=== PATIENT | male | born 1990 | race Hispanic/Latino ===

== ENCOUNTER 2016-12-14 00:18 | Emergency (ER) | payer SELFPAY ==
[~2016-12-14] VITALS: Ht 167.6 cm; Wt 110.0 kg
[~2016-12-14 00:18] MED LIST: AMOXICILLIN500 MG PO
[2016-12-14 01:43] LABS: HEMATOCRIT 44.6 % (39.0-50.0); IMMATURE GRANULOCYTES 0.3 % (0.0-1.0); MEAN CELL VOLUME 91.2 fL CALC (80.0-100.0); MEAN CORPUSCULAR HGB 30.7 pG CALC (26.0-32.0); MEAN CORPUSCULAR HGB CONC 33.6 g/L CALC (32.0-36.0); NEUT# 8.04 thou/uL (1.82-7.42); RED BLOOD COUNT 4.89 mill/uL (4.70-6.10); RED CELL DISTRI WIDTH 12.7 % (11.5-15.5)
[2016-12-14 01:44] LABS: URINE BILIRUBIN - DIPSTICK NEGATIVE (NEGATIVE); URINE BLOOD DIPSTICK NEGATIVE (NEGATIVE); URINE CLARITY CLEAR; URINE COLOR YELLOW; URINE GLUCOSE - DIPSTICK NEGATIVE (NEGATIVE); URINE KETONE NEGATIVE (NEGATIVE); URINE LEUK ESTERASE NEGATIVE (NEGATIVE); URINE NITRITE - DIPSTICK NEGATIVE (Negative); URINE PH 5.5 (4.5-8.0); URINE PROTEIN - DIPSTICK NEGATIVE (NEG-TRACE); URINE SPECIFIC GRAVITY <=1.005; URINE UROBILINOGEN - DIPSTICK 0.2 E.U./dL (0.2)
[2016-12-14 01:52] LABS: BARBITURATES NEGATIVE (NEGATIVE); COCAINE POSITIVE (NEGATIVE); METHADONE NEGATIVE (NEGATIVE); OXCYCODONE NEGATIVE (NEGATIVE); TETRAHYDROCANNABIONOL NEGATIVE (NEGATIVE); TRICYLIC ANTIDEPRESSANTS NEGATIVE (NEGATIVE)
[2016-12-14 01:54] LABS: ALBUMIN 4.7 g/dL (3.2-5.0); ALKALINE PHOSPHATASE 71 u/l (38-126); ANION GAP 22 (6-22 (CALC)); BILIRUBIN, TOTAL 0.4 mg/dL (0.0-1.4); BUN 10 mg/dL (9-20); BUN/CREATININE RATIO 12 (12-20 (CALC)); CALCIUM 9.3 mg/dL (8.4-10.2); CARBON DIOXIDE 18 mmol/l (22-30); CHLORIDE 105 mmol/l (95-108); CREATININE 0.8 mg/dL (0.7-1.3); GFR > 60 ML/MIN (>=60 (CALC)); GFR FOR AFR.AMER. > 60 ML/MIN (>=60 (CALC)); GLUCOSE 102 mg/dL (75-110); POTASSIUM 4.1 mmol/l (3.5-5.1); SGOT/AST 105 u/l (17-59); SGPT/ALT 188 u/l (21-72); SODIUM 140 mmol/l (137-146); TOTAL PROTEIN 7.9 g/dL (6.3-8.2)
[2016-12-14] MEDS ORDERED: ULTRAM50 M1 PO (03:14)
[2016-12-14] MEDS ORDERED: NAPROSYN500 MG PO (03:16)
[2016-12-14 05:46] VITALS: BP 107/53
== END 2016-12-14 05:48 | disposition home or self-care (01) | DRG 605 ==
LOC: ED 00:18
PROVIDERS: Emergency Medicine
DX: S30.1XXA Contusion of abdominal wall, initial encounter (principal); F10.10 Alcohol abuse, uncomplicated; K40.90 Unilateral inguinal hernia, without obstruction or gangrene, not specified as recurrent; F19.10 Other psychoactive substance abuse, uncomplicated; Y04.0XXA Assault by unarmed brawl or fight, initial encounter
CPT/HCPCS: Q9967

== ENCOUNTER 2017-03-30 09:18 | Emergency (ER) | payer SELFPAY ==
[~2017-03-30] VITALS: Ht 167.6 cm; Wt 155.0 kg
[~2017-03-30 09:18] MED LIST changes: +NAPROSYN500 MG PO; +ULTRAM50 M1 PO
[2017-03-30 10:21] LABS: HEMATOCRIT 48.8 % (39.0-50.0); HEMOGLOBIN 15.7 g/dl (14.0-18.0); IMMATURE GRANULOCYTES 0.4 % (0.0-1.0); MEAN CELL VOLUME 95.9 fL CALC (80.0-100.0); MEAN CORPUSCULAR HGB 30.8 pG CALC (26.0-32.0); MEAN CORPUSCULAR HGB CONC 32.2 g/L CALC (32.0-36.0); NEUT# 6.82 thou/uL (1.82-7.42); RED BLOOD COUNT 5.09 mill/uL (4.70-6.10); RED CELL DISTRI WIDTH 12.7 % (11.5-15.5)
[2017-03-30 10:35] LABS: ALBUMIN 4.5 g/dL (3.2-5.0); ALKALINE PHOSPHATASE 85 u/l (38-126); ANION GAP 14 (6-22 (CALC)); BILIRUBIN, TOTAL 0.8 mg/dL (0.0-1.4); BUN 11 mg/dL (9-20); BUN/CREATININE RATIO 13 (12-20 (CALC)); CALCIUM 9.6 mg/dL (8.4-10.2); CARBON DIOXIDE 31 mmol/l (22-30); CHLORIDE 103 mmol/l (95-108); CREATININE 0.9 mg/dL (0.7-1.3); GFR > 60 ML/MIN (>=60 (CALC)); GFR FOR AFR.AMER. > 60 ML/MIN (>=60 (CALC)); GLUCOSE 101 mg/dL (75-110); POTASSIUM 5.1 mmol/l (3.5-5.1); SGOT/AST 139 u/l (17-59); SGPT/ALT 293 u/l (21-72); SODIUM 143 mmol/l (137-146); TOTAL PROTEIN 8.3 g/dL (6.3-8.2)
[2017-03-30 12:14] LABS: URINE BILIRUBIN - DIPSTICK NEGATIVE (NEGATIVE); URINE BLOOD DIPSTICK NEGATIVE (NEGATIVE); URINE CLARITY CLEAR; URINE COLOR YELLOW; URINE GLUCOSE - DIPSTICK NEGATIVE (NEGATIVE); URINE KETONE NEGATIVE (NEGATIVE); URINE LEUK ESTERASE NEGATIVE (NEGATIVE); URINE NITRITE - DIPSTICK NEGATIVE (Negative); URINE PROTEIN - DIPSTICK NEGATIVE (NEG-TRACE); URINE SPECIFIC GRAVITY 1.015; URINE UROBILINOGEN - DIPSTICK 0.2 E.U./dL (0.2)
[2017-03-30] MEDS ORDERED: NAPROSYN500 MG PO (12:59)
[2017-03-30 13:04] VITALS: BP 138/82
== END 2017-03-30 13:10 | disposition home or self-care (01) | DRG 730 ==
LOC: ED 09:18
PROVIDERS: Emergency Medicine
DX: N43.3 Hydrocele, unspecified (principal); M54.9 Dorsalgia, unspecified; N50.82 Scrotal pain

== ENCOUNTER 2017-04-28 16:28 | Emergency (ER) | payer SELFPAY ==
[~2017-04-28] VITALS: Ht 167.6 cm; Wt 154.0 kg
[2017-04-28 17:11] VITALS: BP 144/72
== END 2017-04-28 17:16 | disposition home or self-care (01) | DRG 605 ==
LOC: ED 16:28
DX: S41.112A Laceration without foreign body of left upper arm, initial encounter (principal); F17.210 Nicotine dependence, cigarettes, uncomplicated; X99.9XXA Assault by unspecified sharp object, initial encounter

== ENCOUNTER → 2018-03-09 | Outpatient (REF) | payer OTHER ==
[2018-03-09 15:12] LABS: ALBUMIN 4.3 g/dL (3.2-5.0); ALKALINE PHOSPHATASE 74 u/l (38-126); ANION GAP 17 (6-22 (CALC)); BILIRUBIN, TOTAL 0.4 mg/dL (0.0-1.4); BUN 8 mg/dL (9-20); BUN/CREATININE RATIO 11 (12-20 (CALC)); CARBON DIOXIDE 26 mmol/l (22-30); CHLORIDE 104 mmol/l (95-108); CREATININE 0.8 mg/dL (0.7-1.3); GFR > 60 ML/MIN (>=60 (CALC)); GFR FOR AFR.AMER. > 60 ML/MIN (>=60 (CALC)); POTASSIUM 4.3 mmol/l (3.5-5.1); SGOT/AST 33 u/l (17-59); SODIUM 142 mmol/l (137-146)
== END | disposition home or self-care (01) | DRG 607 ==
LOC: LABSPEC 14:45
PROVIDERS: ATTEND Nurse Practitioner Family
DX: L29.9 Pruritus, unspecified (principal)

== ENCOUNTER 2018-04-20 09:37 | Inpatient (IN) | payer OTHER ==
[~2018-04-20] VITALS: Ht 167.6 cm; Wt 147.4 kg
[2018-04-20] VITALS (9 sets, daily range): BP systolic 114–149; BP diastolic 55–82
[~2018-04-20 09:37] MED LIST changes: +ACETAMIN325 MG PO; +ALLERGY RELIEF10 MG PO; +DOXYCYCLINE100 MG PO; +LISINOP/HCTZ1 TA1 PO; +LISINOP/HCTZ1 TAB PO; +WHITE PETROLATUM EX; +[UNRECOGNIZED DRUG - OTHER] PO
--- NOTE | 2018-04-20 14:21 | NUR ---
PT ARRIVED ON UNIT VIA STRETCHER @ 1407 WITH OR STAFF GLO, TRANSFERRED TO BED AND SETTLED. BEDSIDE REPORT GIVEN BY GLO, REPORTED EBL = 100, FLUID IN = 1900, TORADOL GIVEN @ 1318, DILAUDID @ 1328. DRESSINGS X 3 TO LOWER ABD CDI. PT C/O PAIN @ 03/16 AT THIS TIME, SET UP FOR VITAL SIGNS AT THIS TIME. DR BECERRA IN AT THIS TIME AND ROUNDED, DISCUSSED PLAN OF CARE WITH WHO STATED UNDERSTANDING. PT IS FROM [facility] AND BEING MONITORED BY ONE GUARD IN ROOM AT THIS TIME.
--- NOTE | 2018-04-20 16:15 | NUR ---
CHIEF AND STAFF FROM LONG TERM DID EDUCATIONAL TRAINING WITH PT, STATED PT IS NOW ON "EXTENDED LEAVE OF CONFINEMENT" AND WILL HAVE NO GUARDS IN ROOM ANYMORE, MAY HAVE EQUAL PREVILAGES OTHER PATIENTS, REPORT TO LONG TERM WHEN D/C, SHOULD NOT LEAVE HOSPITAL WITH ANY FAMILY/FRIEND BUT IF HE WISHES TO DO SO MEDICAL/NURSING STAFF SHOULD NOT ATTEMPT TO PREVENT HIM, BUT HE WILL SURELY PAY THE CONSEQUENCE.
--- NOTE | 2018-04-20 18:02 | NUR ---
CALLED FOR CLARIFICATION OF MEDS, DR HURTADO WAS CALLED FOR CLARIFICATION AND MESSAGE LEFT ON PHONE.
--- NOTE | 2018-04-20 18:17 | NUR ---
AMBULATED PT TO BEDROOM DOOR AND BACK TO BED, DID NOT TOLERATE WELL, EXPRESSED GROSS DISCOMFORT AND C/O SEVERE LOWER ABD PAIN, ENCOURAGED TO URINATE BUT STATED HE DOES NOT HAVE THE URGE TO DO SO, WILL CONTINUE TO MONITOR.
--- NOTE | 2018-04-20 18:37 | NUR ---
DR HURTADO WAS CONTACTED VIA PHONE AND CLARIFIED ORDERS.
--- NOTE | 2018-04-20 19:32 | NUR ---
PT IS IN BED TALKING ON PHONE. BEDSIDE REPORT RECEIVED FROM DAY NURSES, POC DISCUSSED W/PT. HE WAS INSTRUCTED TO ATTEMPT TO URINATE, HE HAS NOT URINATED SINCE SURGERY OF THIS TIME. HE STATED THAT HE WILL DRINK SOMETHING AND TRY AND GO, I TOLD HIM THAT I WOULD RETURN TO CHECK ON HIM. NO OTHER S/S OF DISTRESS. DRESSING TO LOWER ABD CDI AT THIS TIME.
--- NOTE | 2018-04-20 20:11 | NUR ---
PT HAD NOT URINATED SINCE ARRIVAL TO UNIT @ 1402, INFORMED OF STRAIGHT CATH ORDER AND ATTEMPTED TO BLADDER SCAN BUT WAS UNABLE TO OBTAIN READING DUE TO LOCATION OF SURGICAL SITE. PT REFUSED TO BE CATHETERISED AT THAT TIME STATING HE WOULD TRY TO URINATE ON HIS OWN. INFORMED IF HE WAS NOT SUCCESSFUL HE WOULD HAVE TO BE CATHETERISED TO EMPTY BLADDER, REPORT GIVEN TO TAYE FERNANDEZ.
--- NOTE | 2018-04-21 00:25 | NUR ---
PT V/S ASSESSED AND MEDICATED FOR PAIN REPORTED /. PT DRESSING TO ABD HAS SOME BLOODY DRAINAGE/DRESSING REINFORCED NEEDED. PT ASSISTED IN STANDING AT BEDSIDE TO USE URINAL AND BACK TO BED. PT ENCOURAGED TO CALL W/ANY OTHER NEEDS THEY MAY ARISE. CALL LIGHT AT SIDE. LIGHTS AND TV OFF.
[2018-04-21 00:29] VITALS: BP 118/68
--- NOTE | 2018-04-21 04:40 | NUR ---
LAB IS IN W/PT. PT WAS SLEEPING SOUNDLY, NO S/S OF DISTRESS NOTED AT THIS TIME. CALL LIGHT W/IN REACH.
[2018-04-21 05:11] VITALS: BP 100/63
[2018-04-21 05:31] LABS: HEMATOCRIT 40.5 % (39.0-50.0); HEMOGLOBIN 13.1 g/dl (14.0-18.0); IMMATURE GRANULOCYTES 0.2 % (0.0-5.0); MEAN CELL VOLUME 93.5 fL CALC (80.0-100.0); MEAN CORPUSCULAR HGB 30.3 pG CALC (26.0-32.0); MEAN CORPUSCULAR HGB CONC 32.3 g/L CALC (32.0-36.0); NEUT# 9.16 thou/uL (1.82-7.42); RED BLOOD COUNT 4.33 mill/uL (4.70-6.10); RED CELL DISTRI WIDTH 13.6 % (11.5-15.5)
[2018-04-21 05:37] LABS: ALKALINE PHOSPHATASE 37 u/l (38-126); ANION GAP 12 (6-22 (CALC)); BILIRUBIN, TOTAL 0.9 mg/dL (0.0-1.4); BUN 11 mg/dL (9-20); BUN/CREATININE RATIO 13 (12-20 (CALC)); CARBON DIOXIDE 29 mmol/l (22-30); CHLORIDE 100 mmol/l (95-108); CREATININE 0.8 mg/dL (0.7-1.3); GFR > 60 ML/MIN (>=60 (CALC)); GFR FOR AFR.AMER. > 60 ML/MIN (>=60 (CALC)); MAGNESIUM 1.8 mg/dL (1.6-2.3); POTASSIUM 3.8 mmol/l (3.5-5.1); SGOT/AST 50 u/l (17-59); SODIUM 137 mmol/l (137-146)
[2018-04-21 05:38] LABS: ALBUMIN 3.3 g/dL (3.2-5.0); TOTAL PROTEIN 6.1 g/dL (6.3-8.2)
--- NOTE | 2018-04-21 05:57 | NUR ---
PT MEDICATED FOR PAIN AND IV ANTIBIOTIC THERAPY ORDERS PROVIDE. DRESSING TO INCISIONAL AREA CDI. PT ENCOURAGED TO CALL IF ANY OTHER ASSISTANCE IS NEEDED. CALL LIGHT AT BEDSIDE.
--- NOTE | 2018-04-21 07:15 | NUR ---
RECEIVED REPORT FROM FRAYA. YANG ON THE PHONE. NO S/S OF DISTRESS NOTED. WILL CONTINUE TO MONITOR.
[2018-04-21 08:38] VITALS: BP 122/77
--- NOTE | 2018-04-21 08:38 | NUR ---
PT RESTING IN BED ON THE PHONE AT THIS TIME. PT A&O x3. ASSESMENT COMPLETED AT THIS TIME (SEE INTERVENTIONS). LUNG SOUNDS CLEAR, HEART SOUNDS NORMAL, ACTIVE BOWEL SOUNDS,NO EDEMA NOTED. OLD DRAINAGE NOTED TO LOWER INCISION AREA DRESSING OTHERWISE INTACT. PT REEDUCATED ON I/S USE AND ITS IMPORTANCE. PT VERBALIZES UNDERSTANDING. PT CONTINUES ON PHONE WHILE ASSESMENT IS BEING COMPLETED. PT COMPLAINING OF 10/10 PAIN TO ABD. PT WANTING DIET ADVANCED. VOIDING DARK YELLOW CLEAR URINE. PT COOPERATIVE AND PLEASANT WITH STAFF. PT MEDICATED PER ORDER. NO OTHER NEEDS AT THIS TIME. CALL RICHARDSON IN REACH. WILL CONTINUE TO MONITOR.
--- NOTE | 2018-04-21 11:33 | NUR ---
DR BECERRA IN TO SPEAK WITH PT, PLAN OF CARE DISCUSSED. PT VEBALIZES UNDERSTANDING.
--- NOTE | 2018-04-21 13:07 | NUR ---
PT AMBULATED WITH SLOW ANSD STEADY GAIT WITH AUTOMOTIVE DRIVABILITY TECHNICIAN CATHESIA FROM ROOM TO WINDOW AND BACK. PT COULD NOT TOLERATE ANYMORE DUE TO PAIN TO ABD AND TESTICLES. TESTLES APPEAR NORMAL, NO SWELLING OR EDEMA. PT REPOSITIONED BACK INTO BED. PAIN AT A 10 AT THIS TIME. WILL CONTINUE TO MONITOR. CALL RICHARDSON IN REACH.
[2018-04-21 15:19] VITALS: BP 110/55
--- NOTE | 2018-04-21 16:30 | NUR ---
DR WILLOUGHBY CALLED FOR PT UPDATE. NO NEW ORDERS AT THIS.
--- NOTE | 2018-04-21 17:01 | NUR ---
PT RESTING IN BED TALKING ON THE PHONE. PAIN STILL ONGOING. AWARE PAIN MEDS ARE DUE IN 1 HR. CALL RICHARDSON IN REACH. WILL CONTINUE TO MONITOR.
[2018-04-21 20:00] VITALS: BP 115/71
--- NOTE | 2018-04-21 20:55 | NUR ---
PT MEDICATED FOR PAIN REPORTED 03/16 AND PM MEDICATIONS PROVIDE. POC DISCUSSED W/PT. WILL ATTEMPT TO AMBULATE PAIN LEVEL REDUCES. CALL LIGHT W/IN REACH.
--- NOTE | 2018-04-21 21:30 | NUR ---
PT CALLED TO ASK FOR SOMETHING FOR ANXIETY, PAIN AND SLEEP. I DISCUSSED POC W/PT AND DISCUSSED HOME MEDICATIONS. SHE IS UN ABLE TO TELL ME WHAT SHE TAKES FOR PAIN, REPORTING THAT SHE HAS CHRONIC BACK PAIN AND THAT'S WHAT SHE IS HAVING TONIGHT. MED REQ REVIEWED, WILL CONTACT PHYSICIAN FOR ORDERS.
--- NOTE | 2018-04-21 21:45 | NUR ---
PHYSICIAN CONTACTED/ORDERS RECEIVED.
--- NOTE | 2018-04-21 22:07 | NUR ---
PT MEDICATED ORDERS PROVIDE. PT WAS SLEEPING I ENTERED THE ROOM, ONLY AWOKE TO MY VOICE. WILL CONTINUE TO MONITOR FOR PAIN OR DISTRESS. CALL LIGHT IS AT BEDSIDE AND PT INSTRUCTED TO CALL IF SHE NEEDS TO GET UP.
[2018-04-22 00:09] VITALS: BP 109/63
--- NOTE | 2018-04-22 00:11 | NUR ---
PT MEDICATED FOR PAIN 03/16. PT WALKED HALLWAY TWO ROOMS DOWN AND BACK TO BED. AIDES ASSISTED STANDBY. LIGHTS AND TV ON.
--- NOTE | 2018-04-22 01:00 | NUR ---
DR BECERRA AND HENRY IN TO SEE PT. PLAN OF CARE DISCUSSED AND PT IS TO BE DISCHARGED. PT VERBALIZES UNDERSTANDING.
--- NOTE | 2018-04-22 04:15 | NUR ---
PT ASSISTED AMBULATING TO RESTROOM AND BACK TO BED. PT NEEDED ASSISTANCE CLEANING OF DIAHARREA, PT APPEARS TO BE IN A GREAT AMOUNT OF PAIN AND IS CRYING IN PAIN. PT TALKED THROUGH PAIN GETTING BACK TO THE BED. WILL MEDICATE FOR PAIN ORDERS ALLOW.
[2018-04-22 04:23] VITALS: BP 143/83
--- NOTE | 2018-04-22 04:23 | NUR ---
PT MEDICATED FOR PAIN 03/16. PT IS BREATHING HEAVY, EYES CLOSED, APPEARS TO BE IN PAIN. PT REPORTS FEELING NAUSEOUS ALSO. WILL CONTINUE TO MONITOR FOR SYMPTOMS. LIGHTS OFF TV ON LOW. CALL LIGHT NEXT TO HAND.
[2018-04-22 05:07] LABS: HEMATOCRIT 42.1 % (39.0-50.0); HEMOGLOBIN 13.4 g/dl (14.0-18.0); IMMATURE GRANULOCYTES 0.4 % (0.0-5.0); MEAN CELL VOLUME 94.2 fL CALC (80.0-100.0); MEAN CORPUSCULAR HGB CONC 31.8 g/L CALC (32.0-36.0); NEUT# 9.94 thou/uL (1.82-7.42); RED BLOOD COUNT 4.47 mill/uL (4.70-6.10); RED CELL DISTRI WIDTH 13.6 % (11.5-15.5)
[2018-04-22 05:33] LABS: ALBUMIN 3.5 g/dL (3.2-5.0); ALKALINE PHOSPHATASE 44 u/l (38-126); ANION GAP 13 (6-22 (CALC)); BILIRUBIN, TOTAL 0.8 mg/dL (0.0-1.4); BUN 14 mg/dL (9-20); BUN/CREATININE RATIO 16 (12-20 (CALC)); CARBON DIOXIDE 29 mmol/l (22-30); CHLORIDE 101 mmol/l (95-108); CREATININE 0.8 mg/dL (0.7-1.3); GFR > 60 ML/MIN (>=60 (CALC)); GFR FOR AFR.AMER. > 60 ML/MIN (>=60 (CALC)); MAGNESIUM 1.8 mg/dL (1.6-2.3); POTASSIUM 4.1 mmol/l (3.5-5.1); SGOT/AST 45 u/l (17-59); SODIUM 138 mmol/l (137-146); TOTAL PROTEIN 6.6 g/dL (6.3-8.2)
--- NOTE | 2018-04-22 07:00 | NUR ---
RECEIVED REPORT FROM ANASTASIA AYALA. NO S/S OF DISTRESS RESTING IN BED WATCHING TV. COMPLAINING OF PAIN. WILL MEDICATED ORDERED. CALL RICHARDSON IN REACH. WILL CONTINUE TO MONITOR.
[2018-04-22 07:58] VITALS: BP 140/89
--- NOTE | 2018-04-22 07:58 | NUR ---
PT IN RESTING IN BED AT THIS TIME. MEDICATED PER ORDER FOR PAIN 03/16. PT COMPLAINING OF NAUSEA, ABD PAIN AND TESTICLE PAIN. ASSESMENT COMPLETED AT THIS TIME(SEE INTERVENTIONS) LUNG SOUNDS CLEAR. BOWEL SOUNDS ACTIVE. HEART SOUNDS NORMAL. NO SWELLING OR EDEMA NOTED. OLD DRAINAGE NOTED TO DRESSING. PT HAVING ABD TENDERNESS. PT INSTRUCTED HE NEEDS TO WALK TODAY AND SIT UP IN THE CHAIR FOR AWHILE FOR LUCH. PT HESITANT BUT AGREEABLE. WILL CONTINUE TO MONITOR.
[2018-04-22 07:59] VITALS: BP 140/89
--- NOTE | 2018-04-22 09:13 | NUR ---
PT WALKING WITH STANDBY ASSIST WITH WALKER JEFF AYALA. PT COMPLAINING OF LEFT LEG PAIN. ONLY ABLE TO AMBULATE 1 DOOR DOWN. PT REPOSITIONED BACK TO BED. CALL RICHARDSON IN [facility] WILL CONTINUE TO MONITOR.
--- NOTE | 2018-04-22 11:25 | NUR ---
PHYSICAL THREAPY INTO WALK PT AT THIS TIME. ONLY ABLE TO WALK TO WINDOW AND BACK. PT SETTLED BACK INTO CHAIR. CALL RICHARDSON IN REACH WILL CONTINUE TO MONITOR.
--- NOTE | 2018-04-22 12:30 | NUR ---
DR SOUSA IN TO SEE PT. PT IS AMBULATORY IN ROOM WITH NO ASSISTANCE. USING WALKER AT THIS TIME. PLAN OF CARE DISCUSSED AND D/C BACK TO FACILITY. PT VERBALIZES UNDERSTANDING.
--- NOTE | 2018-04-22 14:00 | NUR ---
PTS DRESSING REMOVED AT THIS TIME FOR SHOWER. SOME SANGUINEOUS AND BROWN DRAINAGE NOTED TO DRESSING. WOULD APPEARS HEALTHY AND NO REDNESS NOTED. STAPPLES IN PLACE. PT INFORMED THAT D/C IS SOON WILL CONTINUE TO MONITOR. CALL RICHARDSON IN REACH
[2018-04-22] MEDS ORDERED: OXYCODONE/ACETA1 TA8 PO (14:24)
--- NOTE | 2018-04-22 14:50 | NUR ---
PT IN TO SHOWER AT THIS TIME BEFORE HE RETURNS TO HIS FACILITY. PT WILL CALL WHEN FINISHED
--- NOTE | 2018-04-22 15:20 | NUR ---
PT ASSITED WITH DRYING OFF HIS LEGS. PT DRESSED AND IV REMOVED. DRESSIMG TO ABD CLEAN, DRY AND INTACT. NO DRAINAGE AT THIS TIME. GAUZE AND TEGADERM APPLIED. PT TOLERATED WELL. PT READIED FOR D/C
--- NOTE | 2018-04-22 15:44 | NUR ---
SPOKE TO NAYANA HOGAN. REPORT GIVEN.
--- NOTE | 2018-04-22 16:13 | NUR ---
Discharge instructions given. Patient verbalizes understanding of same. [facility] stable [facility] All belongings sent with pt.
== END 2018-04-22 16:02 | DRG 336 ==
LOC: ORM 09:37 → MS2 14:10
PROVIDERS: ADMIT Surgery; ATTEND Internal Medicine Nephrology
PROC: 0YU60JZ Supplement Left Inguinal Region with Synthetic Substitute, Open Approach (ICD-10-PCS; principal; 2018-04-20)
PROC: 0DNN0ZZ Release Sigmoid Colon, Open Approach (ICD-10-PCS; 2018-04-20)
PROC: 0YJ64ZZ Inspection of Left Inguinal Region, Percutaneous Endoscopic Approach (ICD-10-PCS; 2018-04-20)
DX: K40.31 Unilateral inguinal hernia, with obstruction, without gangrene, recurrent (principal); Z68.43 Body mass index [BMI] 50.0-59.9, adult; I10 Essential (primary) hypertension; E66.8 Other obesity; F17.210 Nicotine dependence, cigarettes, uncomplicated
CPT/HCPCS: J2270

== ENCOUNTER 2018-04-29 15:39 | Inpatient (IN) | payer OTHER ==
[~2018-04-29] VITALS: Ht 167.6 cm; Wt 146.0 kg
[~2018-04-29 15:39] MED LIST changes: +OXYCODONE/ACETA1 TA8 PO
[2018-04-29] MEDS ORDERED: EQL IBUPROFEN200 MG PO (16:43)
[2018-04-29 17:24] LABS: HEMATOCRIT 37.4 % (39.0-50.0); HEMOGLOBIN 12.3 g/dl (14.0-18.0); IMMATURE GRANULOCYTES 0.4 % (0.0-5.0); MEAN CELL VOLUME 89.9 fL CALC (80.0-100.0); MEAN CORPUSCULAR HGB 29.6 pG CALC (26.0-32.0); MEAN CORPUSCULAR HGB CONC 32.9 g/L CALC (32.0-36.0); NEUT# 9.95 thou/uL (1.82-7.42); RED BLOOD COUNT 4.16 mill/uL (4.70-6.10)
[2018-04-29 17:38] VITALS: BP 128/80
[2018-04-29 17:59] LABS: ALBUMIN 3.6 g/dL (3.2-5.0); ALKALINE PHOSPHATASE 55 u/l (38-126); ANION GAP 13 (6-22 (CALC)); BILIRUBIN, TOTAL 0.6 mg/dL (0.0-1.4); BUN 10 mg/dL (9-20); BUN/CREATININE RATIO 14 (12-20 (CALC)); CARBON DIOXIDE 27 mmol/l (22-30); CHLORIDE 97 mmol/l (95-108); CREATININE 0.7 mg/dL (0.7-1.3); GFR > 60 ML/MIN (>=60 (CALC)); GFR FOR AFR.AMER. > 60 ML/MIN (>=60 (CALC)); POTASSIUM 4.1 mmol/l (3.5-5.1); SGOT/AST 30 u/l (17-59); SODIUM 134 mmol/l (137-146); TOTAL PROTEIN 6.9 g/dL (6.3-8.2)
[2018-04-29 19:07] VITALS: BP 123/71
[2018-04-29 19:09] VITALS: BP 119/71
[2018-04-30] VITALS (12 sets, daily range): BP systolic 99–132; BP diastolic 56–74
[2018-04-30 05:45] LABS: ANION GAP 9 (6-22 (CALC)); BUN 7 mg/dL (9-20); BUN/CREATININE RATIO 9 (12-20 (CALC)); CARBON DIOXIDE 29 mmol/l (22-30); CHLORIDE 104 mmol/l (95-108); CREATININE 0.7 mg/dL (0.7-1.3); GFR > 60 ML/MIN (>=60 (CALC)); GFR FOR AFR.AMER. > 60 ML/MIN (>=60 (CALC)); HEMATOCRIT 35.3 % (39.0-50.0); HEMOGLOBIN 11.5 g/dl (14.0-18.0); IMMATURE GRANULOCYTES 0.9 % (0.0-5.0); MEAN CELL VOLUME 92.4 fL CALC (80.0-100.0); MEAN CORPUSCULAR HGB 30.1 pG CALC (26.0-32.0); MEAN CORPUSCULAR HGB CONC 32.6 g/L CALC (32.0-36.0); NEUT# 6.66 thou/uL (1.82-7.42); POTASSIUM 4.1 mmol/l (3.5-5.1); RED BLOOD COUNT 3.82 mill/uL (4.70-6.10); RED CELL DISTRI WIDTH 13.1 % (11.5-15.5); SODIUM 138 mmol/l (137-146)
[2018-05-01] VITALS (10 sets, daily range): BP systolic 98–129; BP diastolic 57–78
[2018-05-01 04:59] LABS: HEMATOCRIT 33.9 % (39.0-50.0); HEMOGLOBIN 10.6 g/dl (14.0-18.0); IMMATURE GRANULOCYTES 0.4 % (0.0-5.0); MEAN CELL VOLUME 94.2 fL CALC (80.0-100.0); MEAN CORPUSCULAR HGB 29.4 pG CALC (26.0-32.0); MEAN CORPUSCULAR HGB CONC 31.3 g/L CALC (32.0-36.0); NEUT# 8.37 thou/uL (1.82-7.42); RED BLOOD COUNT 3.6 mill/uL (4.70-6.10); RED CELL DISTRI WIDTH 13.2 % (11.5-15.5)
[2018-05-01 09:39] LABS: URINE BILIRUBIN - DIPSTICK NEGATIVE (NEGATIVE); URINE BLOOD DIPSTICK NEGATIVE (NEGATIVE); URINE COLOR YELLOW; URINE GLUCOSE - DIPSTICK NEGATIVE (NEGATIVE); URINE KETONE NEGATIVE (NEGATIVE); URINE LEUK ESTERASE TRACE (NEGATIVE); URINE NITRITE - DIPSTICK NEGATIVE (Negative); URINE PROTEIN - DIPSTICK NEGATIVE (NEG-TRACE); URINE SPECIFIC GRAVITY 1.015
[2018-05-01 09:48] LABS: URINE CLARITY CLEAR
[2018-05-02 00:32] VITALS: BP 133/75
[2018-05-02 05:12] LABS: HEMATOCRIT 35.9 % (39.0-50.0); HEMOGLOBIN 11.5 g/dl (14.0-18.0); IMMATURE GRANULOCYTES 0.3 % (0.0-5.0); MEAN CELL VOLUME 93.5 fL CALC (80.0-100.0); MEAN CORPUSCULAR HGB 29.9 pG CALC (26.0-32.0); NEUT# 8.54 thou/uL (1.82-7.42); RED BLOOD COUNT 3.84 mill/uL (4.70-6.10); RED CELL DISTRI WIDTH 13.2 % (11.5-15.5)
[2018-05-02 05:25] VITALS: BP 136/92
[2018-05-02 05:36] LABS: ALBUMIN 2.9 g/dL (3.2-5.0); ALKALINE PHOSPHATASE 47 u/l (38-126); ANION GAP 11 (6-22 (CALC)); BILIRUBIN, TOTAL 0.3 mg/dL (0.0-1.4); BUN 8 mg/dL (9-20); BUN/CREATININE RATIO 11 (12-20 (CALC)); CARBON DIOXIDE 27 mmol/l (22-30); CHLORIDE 107 mmol/l (95-108); CREATININE 0.7 mg/dL (0.7-1.3); GFR > 60 ML/MIN (>=60 (CALC)); GFR FOR AFR.AMER. > 60 ML/MIN (>=60 (CALC)); POTASSIUM 4.5 mmol/l (3.5-5.1); SGOT/AST 19 u/l (17-59); SODIUM 140 mmol/l (137-146)
[2018-05-02 08:00] VITALS: BP 113/56
[2018-05-02 15:27] VITALS: BP 123/63
[2018-05-02 20:00] VITALS: BP 129/81
[2018-05-03 00:45] VITALS: BP 124/74
[2018-05-03 05:18] VITALS: BP 135/86
[2018-05-03 05:37] LABS: HEMATOCRIT 36.1 % (39.0-50.0); HEMOGLOBIN 11.4 g/dl (14.0-18.0); IMMATURE GRANULOCYTES 0.4 % (0.0-5.0); MEAN CELL VOLUME 93.5 fL CALC (80.0-100.0); MEAN CORPUSCULAR HGB 29.5 pG CALC (26.0-32.0); MEAN CORPUSCULAR HGB CONC 31.6 g/L CALC (32.0-36.0); NEUT# 9.48 thou/uL (1.82-7.42); RED BLOOD COUNT 3.86 mill/uL (4.70-6.10); RED CELL DISTRI WIDTH 13.2 % (11.5-15.5)
[2018-05-03 07:44] VITALS: BP 125/79
[2018-05-03 15:15] VITALS: BP 130/87
[2018-05-03 19:05] VITALS: BP 124/80
[2018-05-04 00:04] VITALS: BP 136/86
[2018-05-04 04:44] VITALS: BP 121/80
[2018-05-04 05:19] LABS: HEMATOCRIT 36.1 % (39.0-50.0); HEMOGLOBIN 11.4 g/dl (14.0-18.0); IMMATURE GRANULOCYTES 0.5 % (0.0-5.0); MEAN CORPUSCULAR HGB 29.4 pG CALC (26.0-32.0); MEAN CORPUSCULAR HGB CONC 31.6 g/L CALC (32.0-36.0); NEUT# 7.81 thou/uL (1.82-7.42); RED BLOOD COUNT 3.88 mill/uL (4.70-6.10); RED CELL DISTRI WIDTH 13.2 % (11.5-15.5)
[2018-05-04 05:40] LABS: ALBUMIN 3.1 g/dL (3.2-5.0); ALKALINE PHOSPHATASE 45 u/l (38-126); ANION GAP 12 (6-22 (CALC)); BILIRUBIN, TOTAL 0.3 mg/dL (0.0-1.4); BUN 8 mg/dL (9-20); BUN/CREATININE RATIO 11 (12-20 (CALC)); CARBON DIOXIDE 27 mmol/l (22-30); CHLORIDE 106 mmol/l (95-108); CREATININE 0.7 mg/dL (0.7-1.3); GFR > 60 ML/MIN (>=60 (CALC)); GFR FOR AFR.AMER. > 60 ML/MIN (>=60 (CALC)); POTASSIUM 4.4 mmol/l (3.5-5.1); SGOT/AST 20 u/l (17-59); SODIUM 140 mmol/l (137-146); TOTAL PROTEIN 6.3 g/dL (6.3-8.2)
[2018-05-04 09:43] VITALS: BP 127/76
[2018-05-04 15:56] VITALS: BP 125/7
[2018-05-04 20:10] VITALS: BP 138/76
[2018-05-05 00:44] VITALS: BP 113/54
[2018-05-05 04:10] VITALS: BP 111/64
[2018-05-05 09:10] VITALS: BP 125/75
[2018-05-05 15:25] VITALS: BP 132/73
[2018-05-05 19:06] VITALS: BP 115/68
[2018-05-06 05:09] VITALS: BP 122/76
[2018-05-06 08:09] VITALS: BP 142/75
[2018-05-06 16:58] VITALS: BP 128/83
[2018-05-06 19:45] VITALS: BP 124/60
[2018-05-07 05:36] LABS: HEMATOCRIT 36.6 % (39.0-50.0); HEMOGLOBIN 11.6 g/dl (14.0-18.0); IMMATURE GRANULOCYTES 0.4 % (0.0-5.0); MEAN CELL VOLUME 92.4 fL CALC (80.0-100.0); MEAN CORPUSCULAR HGB 29.3 pG CALC (26.0-32.0); MEAN CORPUSCULAR HGB CONC 31.7 g/L CALC (32.0-36.0); NEUT# 7.91 thou/uL (1.82-7.42); RED BLOOD COUNT 3.96 mill/uL (4.70-6.10); RED CELL DISTRI WIDTH 13.2 % (11.5-15.5)
[2018-05-07 06:03] LABS: ANION GAP 12 (6-22 (CALC)); BUN 6 mg/dL (9-20); BUN/CREATININE RATIO 8 (12-20 (CALC)); CARBON DIOXIDE 26 mmol/l (22-30); CHLORIDE 106 mmol/l (95-108); CREATININE 0.8 mg/dL (0.7-1.3); GFR > 60 ML/MIN (>=60 (CALC)); GFR FOR AFR.AMER. > 60 ML/MIN (>=60 (CALC)); MAGNESIUM 1.9 mg/dL (1.6-2.3); POTASSIUM 3.9 mmol/l (3.5-5.1); SODIUM 140 mmol/l (137-146)
[2018-05-07 07:50] VITALS: BP 133/83
[2018-05-07 16:19] VITALS: BP 139/74
[2018-05-07 19:26] VITALS: BP 136/77
[2018-05-08 04:12] VITALS: BP 127/67
[2018-05-08 05:15] LABS: HEMATOCRIT 36.8 % (39.0-50.0); HEMOGLOBIN 11.7 g/dl (14.0-18.0); IMMATURE GRANULOCYTES 0.3 % (0.0-5.0); MEAN CELL VOLUME 92.5 fL CALC (80.0-100.0); MEAN CORPUSCULAR HGB 29.4 pG CALC (26.0-32.0); MEAN CORPUSCULAR HGB CONC 31.8 g/L CALC (32.0-36.0); NEUT# 6.52 thou/uL (1.82-7.42); RED BLOOD COUNT 3.98 mill/uL (4.70-6.10); RED CELL DISTRI WIDTH 13.2 % (11.5-15.5)
[2018-05-08 05:31] LABS: ANION GAP 14 (6-22 (CALC)); BUN 5 mg/dL (9-20); BUN/CREATININE RATIO 6 (12-20 (CALC)); CARBON DIOXIDE 27 mmol/l (22-30); CHLORIDE 103 mmol/l (95-108); CREATININE 0.8 mg/dL (0.7-1.3); GFR > 60 ML/MIN (>=60 (CALC)); GFR FOR AFR.AMER. > 60 ML/MIN (>=60 (CALC)); SODIUM 139 mmol/l (137-146)
[2018-05-08 08:28] VITALS: BP 125/73
[2018-05-08 16:00] VITALS: BP 125/60
[2018-05-08 18:59] VITALS: BP 122/60
[2018-05-09 04:30] VITALS: BP 119/71
[2018-05-09 08:30] VITALS: BP 130/69
[2018-05-09] MEDS ORDERED: CIPROFLOXACN500 MG PO (13:29)
[2018-05-09] MEDS ORDERED: ONDANSETRON4 MG PO (13:30)
[2018-05-09 15:55] VITALS: BP 139/81
== END 2018-05-09 17:07 | DRG 857 ==
LOC: ED 15:39 → ED-I 15:58 → ED 16:39 → MS2 16:49 → ICU 16:49 → MS2 05-01 15:22
PROVIDERS: Emergency Medicine; Internal Medicine Nephrology; Nurse Practitioner Family; ADMIT Internal Medicine; ATTEND Internal Medicine
PROC: 0WPF0JZ Removal of Synthetic Substitute from Abdominal Wall, Open Approach (ICD-10-PCS; principal; 2018-04-30)
DX: T81.42XA Infection following a procedure, deep incisional surgical site, initial encounter (principal); L02.211 Cutaneous abscess of abdominal wall; M96.842 Postprocedural seroma of a musculoskeletal structure following a musculoskeletal system procedure; Z68.43 Body mass index [BMI] 50.0-59.9, adult; E87.1 Hypo-osmolality and hyponatremia; I96 Gangrene, not elsewhere classified; I10 Essential (primary) hypertension; K59.09 Other constipation; E66.01 Morbid (severe) obesity due to excess calories; F17.200 Nicotine dependence, unspecified, uncomplicated; B96.4 Proteus (mirabilis) (morganii) as the cause of diseases classified elsewhere; Y83.8 Other surgical procedures as the cause of abnormal reaction of the patient, or of later complication, without mention of misadventure at the time of the procedure
CPT/HCPCS: J2710; Q9967